=== PATIENT | female | born 2000 | race African-American/Black ===

== ENCOUNTER 2018-02-24 12:13 | Emergency (ER) | payer BC ==
[~2018-02-24] VITALS: Ht 167.6 cm; Wt 64.0 kg
[2018-02-24] MEDS ORDERED: DIPHENHYDRAMINE 50MG/ML VIAL IV ONE ×2 (12:30→12:45)
[2018-02-24] MEDS ORDERED: EPINEPHRINE 1:1000 1 MG/ML AMP INJ ONE (12:30)
[2018-02-24] MEDS ORDERED: SODIUM CHLORIDE 0.9% 500 ML IV ONE (12:45)
[2018-02-24 13:13] LABS: BASOPHILS % 0.7 % (0.0-2.0); EOSINOPHILS % 2.2 % (0.0-5.0); HEMATOCRIT. 30.4 % (36.0-48.0); HEMOGLOBIN. 9.7 g/dL (12.0-16.0); LYMPHOCYTES % 46.9 % (20.0-50.0); MEAN CORPUSCULAR VOLUME 59.8 fL (81.0-99.0); NEUTROPHILS % 43.2 % (40.0-76.0); PLATELET 409 x1000/uL (130-400); RED BLOOD CELL COUNT 5.08 mill/uL (4.2-5.4); RED CELL DISTRIBUTION WIDTH 16.7 % (11.6-14.6)
[2018-02-24 13:18] LABS: CHLORIDE 112 mEq/L (98-107)
[2018-02-24 13:19] LABS: INR 1.2
[2018-02-24 13:32] LABS: PLATELET ESTIMATE SLIGHTLY INCREASED
[2018-02-24 14:56] LABS: CLARITY URINE CLEAR (CLEAR); COLOR URINE YELLOW (YELLOW); KETONES URINE NEGATIVE (NEGATIVE); LEUKOCYTE ESTERASE URINE NEGATIVE (NEGATIVE); NITRITE URINE NEGATIVE (NEGATIVE); OCCULT BLOOD URINE NEGATIVE (NEGATIVE); PH URINE 6.5 (4.5-8.0); PROTEIN URINE TRACE (NEGATIVE); SPECIFIC GRAVITY URINE 1.019 (1.005-1.030)
[2018-02-24 15:07] VITALS: BP 109/75
[2018-02-24 15:40] LABS: *AMPHETAMINES SCREEN URINE NEGATIVE (NEGATIVE); *BARBITURATES SCREEN URINE NEGATIVE (NEGATIVE); *BENZODIAZEPINES SCREEN URINE NEGATIVE (NEGATIVE); *COCAINE SCREEN URINE NEGATIVE (NEGATIVE); METHADONE URINE SCREEN NEGATIVE (NEGATIVE); OPIATES URINE SCREEN NEGATIVE (NEGATIVE)
[2018-02-24 15:41] LABS: CANNABINOID URINE SCREEN NEGATIVE (NEGATIVE); PHENCYCLIDINE URINE SCREEN NEGATIVE (NEGATIVE)
== END 2018-02-24 15:44 | disposition home or self-care (01) ==
LOC: ER 14:51
DX: T78.03XA Anaphylactic reaction due to other fish, initial encounter (principal); I10 Essential (primary) hypertension; E86.0 Dehydration; D64.9 Anemia, unspecified; E87.8 Other disorders of electrolyte and fluid balance, not elsewhere classified; E83.51 Hypocalcemia; E88.09 Other disorders of plasma-protein metabolism, not elsewhere classified; N17.0 Acute kidney failure with tubular necrosis; N39.0 Urinary tract infection, site not specified; R82.71 Bacteriuria; X58.XXXA Exposure to other specified factors, initial encounter
CPT/HCPCS: 36415; 80053; 80305; 81003; 81025; 83036; 83880; 84484; 85025; 85610; 93005; 96361; 96374; 96376; 99291; J1200; J3490; J7040